=== PATIENT | female | born 1955 | race American Indian/Alaskan Native ===

== ENCOUNTER 2025-08-01 08:59 | Inpatient (IN) | payer MEDICARE, OTHER ==
[2025-08-01 09:34] LABS: APPEARANCE,URINE CLEAR (CLEAR); GLUCOSE,URINE NEGATIVE (NEGATIVE); OCCULT BLOOD,URINE TRACE-INTACT (NEGATIVE)
[2025-08-01 09:48] LABS: BASOPHILS PERCENT AUTO 0.0 % (0.0-1.0); EOSINOPHILS PERCENT AUTO 0.6 % (1.0-3.0); LYMPHOCYTES PERCENT AUTO 8.5 % (20.5-50.1); MONOCYTES PERCENT AUTO 14.9 % (2-8); NEUTROPHILS PERCENT AUTO 76.0 % (42.2-75.2); PLATELET COUNT,PLT 131 10^3/uL (150-450); RED BLOOD CELL COUNT 3.60 10^6/uL (4.2-5.4); WHITE BLOOD CELL COUNT,WBC 5.0 10^3/uL (5.0-10.0)
[2025-08-01 10:03] LABS: AMPHETAMINES,URINE NEGATIVE (NEGATIVE); BARBITURATES,URINE NEGATIVE (NEGATIVE); MDMA (ECSTASY), URINE NEGATIVE (NEGATIVE); METHAMPHETAMINES,URINE NEGATIVE (NEGATIVE); OPIATES,URINE NEGATIVE (NEGATIVE); OXYCODONE,URINE NEGATIVE (NEGATIVE); PHENCYCLIDINE,URINE NEGATIVE (NEGATIVE); SQUAMOUS EPITHELIAL CELLS,UR FEW /HPF (NOT SEEN); TCA,URINE POSITIVE (NEGATIVE)
[2025-08-01 10:12] LABS: ALANINE AMINOTRANSFERASE,ALT 33 U/L (14-59); ASPARTATE AMNIOTRANSFERASE,AST 34 U/L (15-37); BILIRUBIN TOTAL 0.2 mg/dL (0.2-1.0); BLOOD UREA NITROGEN,BUN 30 mg/dL (7-18); CARBON DIOXIDE,CO2 28 mmol/L (21-32); CHLORIDE,CL 99 mmol/L (98-107); CREATININE 1.32 mg/dL (0.55-1.02); EST CRCL DRUG DOSING (CG) 39.67 mL/min; GLUCOSE RANDOM 84 mg/dL (70-99); POTASSIUM,K 3.5 mmol/L (3.5-5.1); PROTEIN TOTAL,TP 6.4 g/dL (6.4-8.2); SODIUM,NA 135 mmol/L (136-145)
[2025-08-01 10:14] LABS: A/G RATIO 0.68; ESTIMATED GFR 44 mL/min (>=60); ETHANOL BLOOD MEDICAL < 3 mg/dL (0)
[2025-08-01 10:18] LABS: LACTIC ACID 0.9 mmol/L (0.4-2.0)
[2025-08-01 14:43] LABS: LACTIC ACID 1.5 mmol/L (0.4-2.0)
[2025-08-01] MEDS ORDERED: 50% Dextrose in Water 50 ML Syringe IVPUSH PRN (15:36)
[2025-08-01 15:57] LABS: IRON,FE 15.0 ug/dL (50-170); PERCENT FE SATURATION 7.5 % (20.0-50.0)
[2025-08-01] MEDS: Heparin Sodium 5,000 Units/ML Vial SUBCUT SCH (16:02)
[2025-08-01 16:27] LABS: FOLIC ACID 14.7 ng/mL (8.6-58.9); T4 FREE 1.36 ng/dL (0.76-1.46); TSH ULTRASENSITIVE 0.99 uIU/mL (0.36-3.74)
[2025-08-02 06:16] LABS: BASOPHILS PERCENT AUTO 0.4 % (0.0-1.0); EOSINOPHILS PERCENT AUTO 0.7 % (1.0-3.0); LYMPHOCYTES PERCENT AUTO 10.9 % (20.5-50.1); MONOCYTES PERCENT AUTO 16.7 % (2-8); NEUTROPHILS PERCENT AUTO 71.3 % (42.2-75.2); PLATELET COUNT,PLT 159 10^3/uL (150-450); RED BLOOD CELL COUNT 3.24 10^6/uL (4.2-5.4); WHITE BLOOD CELL COUNT,WBC 5.7 10^3/uL (5.0-10.0)
[2025-08-02 06:34] LABS: BLOOD UREA NITROGEN,BUN 17.0 mg/dL (7-18); CARBON DIOXIDE,CO2 23.0 mmol/L (21-32); CHLORIDE,CL 107.0 mmol/L (98-107); CREATININE 0.94 mg/dL (0.55-1.02); EST CRCL DRUG DOSING (CG) 55.7 mL/min; GLUCOSE RANDOM 80.0 mg/dL (70-99); PHOSPHORUS 1.9 mg/dL (2.6-4.7); POTASSIUM,K 3.5 mmol/L (3.5-5.1); SODIUM,NA 140.0 mmol/L (136-145)
[2025-08-02 06:37] LABS: ESTIMATED GFR 66.0 mL/min (>=60)
[2025-08-02] MEDS: Magnesium Sulfate 2 GM/50 mL 2 GM in Premix Bag 1 BAG IV ONE (09:31)
[2025-08-02] MEDS: Phosphorus #1 250 MG Tab PO SCH (09:42)
[2025-08-02] MEDS: Potassium Phosphates 15 MMOLE in Sodium Chloride 0.9% 500 ML IV ONE (09:55)
[2025-08-03] MEDS: Metoprolol Tartrate 5 MG/5 ML SDV IVPUSH ONE (02:23)
[2025-08-03 06:00] LABS: PLATELET COUNT,PLT 171 10^3/uL (150-450); RED BLOOD CELL COUNT 3.24 10^6/uL (4.2-5.4); WHITE BLOOD CELL COUNT,WBC 5.0 10^3/uL (5.0-10.0)
[2025-08-03 06:05] LABS: BASOPHILS PERCENT AUTO 0.4 % (0.0-1.0); EOSINOPHILS PERCENT AUTO 2.2 % (1.0-3.0); LYMPHOCYTES PERCENT AUTO 21.0 % (20.5-50.1); MONOCYTES PERCENT AUTO 20.2 % (2-8); NEUTROPHILS PERCENT AUTO 56.2 % (42.2-75.2)
[2025-08-03 06:10] LABS: BLOOD UREA NITROGEN,BUN 11.0 mg/dL (7-18); CARBON DIOXIDE,CO2 26.0 mmol/L (21-32); CHLORIDE,CL 108.0 mmol/L (98-107); CREATININE 0.85 mg/dL (0.55-1.02); EST CRCL DRUG DOSING (CG) 61.6 mL/min; GLUCOSE RANDOM 95.0 mg/dL (70-99); POTASSIUM,K 3.5 mmol/L (3.5-5.1); SODIUM,NA 143.0 mmol/L (136-145)
[2025-08-03 06:11] LABS: ESTIMATED GFR 75.0 mL/min (>=60)
[2025-08-03 06:26] LABS: BAND PERCENT MAN 2 %; EOSINOPHILS PERCENT MAN 3 % (1-3); LYMPHOCYTES % ATYPICAL MANUAL 1 %; LYMPHOCYTES PERCENT MAN 15 % (20-50); MONOCYTES PERCENT MAN 17 % (2-8); SEG NEUTROPHILS PERCENT MAN 62 % (42-75)
[2025-08-03] MEDS: Amoxicillin/Clavulanate K 875-125 MG Tab PO SCH (08:34)
[2025-08-03] MEDS: Ketorolac 30 MG/ML SDV IVPUSH ONE (10:31)
[2025-08-03] MEDS: diphenhydrAMINE 50 MG/ML SDV IVPUSH ONE (10:31)
[2025-08-05 05:47] LABS: IONIZED CA@PH7.4 1.43 mmol/L (1.09-1.30); IONIZED CALCIUM 1.33 mmol/L (1.09-1.30)
[2025-08-06 09:43] LABS: ALPHA 1 GLOBULIN 0.60 g/dL (0.19-0.46); ALPHA 2 GLOBULIN 0.91 g/dL (0.48-1.05); BETA GLOBULIN 0.72 g/dL (0.48-1.10); GAMMA 0.54 g/dL (0.62-1.51); TOTAL PROTEIN, SERUM 5.7 g/dL (6.3-8.2)
[2025-08-07 23:42] LABS: HOURS COLLECTED Random hr
== END 2025-08-03 13:01 | disposition home or self-care (01) | DRG 871 ==
LOC: DL.ED 08:59 → DL.MS 13:20
PROVIDERS: ADMIT Internal Medicine; ATTEND Internal Medicine
DX: R78.81 Bacteremia (principal); A41.59 Other Gram-negative sepsis; G92.8 Other toxic encephalopathy; N17.9 Acute kidney failure, unspecified; N39.0 Urinary tract infection, site not specified; E87.1 Hypo-osmolality and hyponatremia; E86.0 Dehydration; E83.52 Hypercalcemia; E83.42 Hypomagnesemia; E83.39 Other disorders of phosphorus metabolism; I45.81 Long QT syndrome; D69.6 Thrombocytopenia, unspecified; D50.9 Iron deficiency anemia, unspecified; F32.A Depression, unspecified; R73.03 Prediabetes; G43.909 Migraine, unspecified, not intractable, without status migrainosus; G89.29 Other chronic pain; Z95.810 Presence of automatic (implantable) cardiac defibrillator; Z87.820 Personal history of traumatic brain injury; Z79.899 Other long term (current) drug therapy; Z79.1 Long term (current) use of non-steroidal anti-inflammatories (NSAID); Z79.4 Long term (current) use of insulin; Z79.2 Long term (current) use of antibiotics; Z88.8 Allergy status to other drugs, medicaments and biological substances; Z91.013 Allergy to seafood
CPT/HCPCS: 36415; 80053; 80305; 80307; 81001; 82607; 82746; 83036; 83540; 83550; 83605; 83735; 84145; 84155; 84156; 84165; 84166; 84439; 84443; 85025; 86140; 86335; 86592; 87086; 96361; 96374; 99284 ×2; J0696; J7030; 77075; 80048; 82330; 82947; 84100; 87040; 93005; 93306; 99223; 99233; 99239; A9270-GY; J0616; J1200; J1335; J1644; J1885; J3373; J3475; J3490; J7040; J7050; Q0138; Q0169